=== PATIENT | male | born 1945 | race Caucasian/White ===

== ENCOUNTER 2020-09-19 17:35 | Inpatient (IN) | payer OTHER ==
[~2020-09-19 17:35] MED LIST: CLOPIDOGREL BISULFATE 75 MG TABLET (FP) PO SCH
[2020-09-19 18:00] VITALS: BMI 26.6
[2020-09-19 19:27] LABS: EOS % 2.1 % (0-4.5); HEMATOCRIT 36.4 % (35.4-49); HEMOGLOBIN 12.2 GM/dL (11.7-16.9); LYMPH % 24.8 % (8-40); MCH 25.3 pg (25.7-33.7); MCHC 33.6 g/dl (32.0-35.9); MEAN CELL VOLUME 75.5 fl (80-96); MEAN PLT VOLUME 9.9 fl (7.5-11.1); NEUT % 63.1 % (42.8-82.8); PLATELET COUNT 372 K/MM3 (134-434); RBC 4.83 M/mm3 (4.00-5.60); RDW 20.3 % (11.9-15.9)
[2020-09-19 19:42] LABS: INR 0.97 (0.83-1.09); PROTHROMBIN TIME (PATIENT) 11.9 SEC (9.7-13.0)
[2020-09-19 19:46] LABS: POTASSIUM 4.6 mmol/L (3.5-5.1)
[2020-09-19 19:51] LABS: ALBUMIN 3.1 g/dl (3.4-5.0); BLOOD UREA NITROGEN 14.6 mg/dL (7-18); CALCIUM 8.7 mg/dL (8.5-10.1)
[2020-09-19 19:53] LABS: CREATININE 0.6 mg/dL (0.55-1.3)
[2020-09-19 19:54] LABS: BILIRUBIN,TOTAL 0.4 mg/dL (0.2-1); TOT PROT 7.7 g/dl (6.4-8.2)
[2020-09-19] MEDS ORDERED: ATORVASTATIN CA 80 MG TABLET (FP) PO SCH (22:00)
[2020-09-19] MEDS ORDERED: CLOPIDOGREL BISULFATE 75 MG TABLET (FP) ONE ×2 (23:42→23:55)
[2020-09-19] MEDS ORDERED: ATORVASTATIN CA 80 MG TABLET (FP) ONE (23:42)
[2020-09-19] MEDS ORDERED: HEPARIN NA (PORCINE) 5,000 UNITS/ML 1ML VIAL ONE (23:43)
[2020-09-19] MEDS: HEPARIN NA (PORCINE) 5,000 UNITS/ML 1ML VIAL SQ SCH (23:57)
[2020-09-19] MEDS: ATORVASTATIN CA 80 MG TABLET (FP) PO SCH (23:58)
[2020-09-19] MEDS: CLOPIDOGREL BISULFATE 75 MG TABLET (FP) PO SCH (23:58)
[2020-09-20] MEDS ORDERED: HEPARIN NA (PORCINE) 5,000 UNITS/ML 1ML VIAL ONE ×2 (06:59→15:05)
[2020-09-20] MEDS: HEPARIN NA (PORCINE) 5,000 UNITS/ML 1ML VIAL SQ SCH ×3 (07:04→21:50)
[2020-09-20] MEDS ORDERED: CLOPIDOGREL BISULFATE 75 MG TABLET (FP) ONE (07:59)
[2020-09-20] MEDS: CLOPIDOGREL BISULFATE 75 MG TABLET (FP) PO SCH (09:13)
[2020-09-20] MEDS: metoPROLOL SUCCINATE 25 MG TAB.SR.24H (FP) PO SCH (10:09)
[2020-09-20] MEDS: INSULIN SLIDING SCALE (NOVOLOG) 1 VIAL SQ SCH ×3 (11:21→21:49)
[2020-09-20] MEDS ORDERED: FLU VACCINE (FLULAVAL) PF 60 MCG/0.5 ML SYRINGE 2020-2021 IM ONE (21:00)
[2020-09-20] MEDS: ATORVASTATIN CA 80 MG TABLET (FP) PO SCH (21:50)
[2020-09-21] MEDS: HEPARIN NA (PORCINE) 5,000 UNITS/ML 1ML VIAL SQ SCH ×3 (05:58→21:51)
[2020-09-21] MEDS: INSULIN SLIDING SCALE (NOVOLOG) 1 VIAL SQ SCH ×4 (06:16→21:52)
[2020-09-21 07:10] LABS: BASO % 0.8 % (0-2.0); EOS % 2.1 % (0-4.5); HEMATOCRIT 36.5 % (35.4-49); HEMOGLOBIN 11.9 GM/dL (11.7-16.9); LYMPH % 28.7 % (8-40); MCH 24.8 pg (25.7-33.7); MCHC 32.6 g/dl (32.0-35.9); MEAN CELL VOLUME 76.3 fl (80-96); MONO % 10.3 % (3.8-10.2); NEUT % 58.1 % (42.8-82.8); PLATELET COUNT 256 K/MM3 (134-434); RBC 4.79 M/mm3 (4.00-5.60); RDW 20.2 % (11.9-15.9); WHITE BLOOD COUNT 7.2 K/mm3 (4.0-10.0)
[2020-09-21 07:16] LABS: POTASSIUM 3.3 mmol/L (3.5-5.1)
[2020-09-21 07:28] LABS: CALCIUM 8.5 mg/dL (8.5-10.1)
[2020-09-21 07:29] LABS: ALBUMIN 2.8 g/dl (3.4-5.0); BLOOD UREA NITROGEN 14.2 mg/dL (7-18)
[2020-09-21 07:32] LABS: BILIRUBIN,TOTAL 0.6 mg/dL (0.2-1); CREATININE 0.5 mg/dL (0.55-1.3)
[2020-09-21 07:33] LABS: TOT PROT 6.9 g/dl (6.4-8.2)
[2020-09-21] MEDS ORDERED: REGADENOSON 0.4 MG/5 ML PRE-FILLED SYRINGE IVPUSH ONE ×2 (10:00→10:28)
[2020-09-21] MEDS: CLOPIDOGREL BISULFATE 75 MG TABLET (FP) PO SCH (13:57)
[2020-09-21] MEDS: metoPROLOL SUCCINATE 25 MG TAB.SR.24H (FP) PO SCH (13:57)
[2020-09-21] MEDS: ATORVASTATIN CA 80 MG TABLET (FP) PO SCH (21:52)
[2020-09-22] MEDS ORDERED: FAMOTIDINE 20 MG TABLET PO ONE
[2020-09-22] MEDS: HEPARIN NA (PORCINE) 5,000 UNITS/ML 1ML VIAL SQ SCH ×2 (06:01→15:15)
[2020-09-22] MEDS: INSULIN SLIDING SCALE (NOVOLOG) 1 VIAL SQ SCH ×3 (06:29→17:25)
[2020-09-22] MEDS ORDERED: SODIUM CHLORIDE 1,000 ML IV SCH ×2 (08:15→15:26)
[2020-09-22] MEDS: metoPROLOL SUCCINATE 25 MG TAB.SR.24H (FP) PO SCH (10:17)
[2020-09-22] MEDS: CLOPIDOGREL BISULFATE 75 MG TABLET (FP) PO SCH (10:28)
[2020-09-22] MEDS ORDERED: HEPARIN NA (PORCINE) 5,000 UNITS/ML 1ML VIAL ONE ×2 (11:12→13:11)
[2020-09-22] MEDS ORDERED: LIDOCAINE HCL 1%, 10 MG/ML (20ML VIAL) ONE (11:12)
[2020-09-22] MEDS ORDERED: PROPOFOL 20 ML ONE ×2 (13:22→14:15)
[2020-09-22] MEDS ORDERED: ONDANSETRON 4 MG/2 ML VIAL IVPUSH PRN ×2 (14:59→15:26)
[2020-09-22] MEDS ORDERED: LACTATED RINGERS SOLUTION 1,000 ML IV SCH ×2 (15:00→15:26)
[2020-09-22] MEDS ORDERED: ATORVASTATIN CA 80 MG TABLET (FP) PO SCH (22:00)
[2020-09-23] MEDS: HEPARIN NA (PORCINE) 5,000 UNITS/ML 1ML VIAL SQ SCH ×3 (00:03→15:00)
[2020-09-23] MEDS: INSULIN SLIDING SCALE (NOVOLOG) 1 VIAL SQ SCH ×3 (00:04→11:45)
[2020-09-23] MEDS ORDERED: ACETAMINOPHEN 1000 MG/100 ML VIAL (NON FORMULARY) IVPB ONE (00:34)
[2020-09-23] MEDS ORDERED: ACETAMINOPHEN 325 MG TABLET (FP) PO PRN (01:23)
[2020-09-23 09:51] LABS: POTASSIUM 3.4 mmol/L (3.5-5.1)
[2020-09-23 09:53] LABS: CALCIUM 8.4 mg/dL (8.5-10.1)
[2020-09-23 09:54] LABS: BLOOD UREA NITROGEN 12.8 mg/dL (7-18)
[2020-09-23 09:57] LABS: CREATININE 0.6 mg/dL (0.55-1.3)
[2020-09-23] MEDS ORDERED: metoPROLOL SUCCINATE 25 MG TAB.SR.24H (FP) PO SCH (10:00)
[2020-09-23] MEDS ORDERED: CLOPIDOGREL BISULFATE 75 MG TABLET (FP) PO SCH (10:00)
[2020-09-23] MEDS ORDERED: POTASSIUM CHLORIDE TABS 20 MEQ TABLET.ER (FP) PO ONE (11:00)
[2020-09-23 14:24] VITALS: BP 149/77; PULSE 73; TEMP 99.5
== END 2020-09-24 01:19 | DRG 272 ==
LOC: JER 17:35 → JERBED 20:06 → J4W 09-20 16:49
PROVIDERS: ATTEND Family Medicine
PROC: 047K3DZ Dilation of Right Femoral Artery with Intraluminal Device, Percutaneous Approach (ICD-10-PCS; 2020-09-22)
PROC: B40FYZZ Plain Radiography of Right Lower Extremity Arteries using Other Contrast (ICD-10-PCS; 2020-09-22)
PROC: 3E05317 Introduction of Other Thrombolytic into Peripheral Artery, Percutaneous Approach (ICD-10-PCS; 2020-09-22)
PROC: 04CK3ZZ Extirpation of Matter from Right Femoral Artery, Percutaneous Approach (ICD-10-PCS; principal; 2020-09-22 13:30)
DX: E11.51 Type 2 diabetes mellitus with diabetic peripheral angiopathy without gangrene (principal); I10 Essential (primary) hypertension; E78.5 Hyperlipidemia, unspecified; Z89.612 Acquired absence of left leg above knee; E66.3 Overweight; I74.3 Embolism and thrombosis of arteries of the lower extremities; Z68.26 Body mass index [BMI] 26.0-26.9, adult; Z79.4 Long term (current) use of insulin
CPT/HCPCS: 36415; 71045-TC-FY; 71275-TC; 75635-TC; 76000-TC-FY; 78452-TC; 80048; 80053; 80061; 82550; 82962; 83036; 83721; 83735; 84443; 84484; 85025; 85610; 85730; 86850; 86900; 86901; 93005; 93010; 93017; 93306-TC; 93926-TC; 94760; 97116-GP; 97162-GP; 99285-25; A9502; C9803; G0008; J0131; J1644; J2785; Q2036; Q9967; U0003

== ENCOUNTER 2022-03-14 17:38 | Observation (INO) | payer OTHER ==
[2022-03-14 18:42] VITALS: BMI 26.6
[2022-03-14 20:51] LABS: BASO % 0.6 % (0-2.0); EOS % 2.4 % (0-4.5); HEMATOCRIT 44.1 % (35.4-49); HEMOGLOBIN 14.7 GM/dL (11.7-16.9); LYMPH % 21.4 % (8-40); MCH 25.8 pg (25.7-33.7); MCHC 33.2 g/dl (32.0-35.9); MEAN CELL VOLUME 77.8 fl (80-96); MEAN PLT VOLUME 9.5 fl (7.5-11.1); MONO % 7.4 % (3.8-10.2); NEUT % 68.2 % (42.8-82.8); PLATELET COUNT 259 10^3/uL (134-434); RBC 5.68 M/mm3 (4.00-5.60); RDW 16.5 % (11.9-15.9); WHITE BLOOD COUNT 10.2 K/mm3 (4.0-10.0)
[2022-03-14 21:19] LABS: CALCIUM 9.2 mg/dL (8.5-10.1)
[2022-03-14 21:20] LABS: ALBUMIN 3.2 g/dl (3.4-5.0)
[2022-03-14 21:23] LABS: CREATININE 0.6 mg/dL (0.55-1.3)
[2022-03-14 21:25] LABS: BILIRUBIN,TOTAL 0.3 mg/dL (0.2-1); TOT PROT 7.3 g/dl (6.4-8.2)
[2022-03-14 21:28] LABS: N-TERMINAL BNP 241.4 pg/ml (5-450)
[2022-03-14] MEDS ORDERED: ASPIRIN 325 MG ENTERIC COATED TABLET (FP) PO ONE (21:36)
[2022-03-14] MEDS ORDERED: ACETAMINOPHEN 1000 MG/100 ML BAG IVPB ONE (21:37)
[2022-03-14] MEDS ORDERED: ASPIRIN 325 MG ENTERIC COATED TABLET (FP) ONE (22:05)
[2022-03-14] MEDS ORDERED: ACETAMINOPHEN INJECTION 100 ML IVPB ONE (22:05)
[2022-03-14] MEDS ORDERED: ASPIRIN COATED 81 MG TABLET.EC PO ONE (22:30)
[2022-03-14] MEDS ORDERED: ASPIRIN COATED 81 MG TABLET.EC ONE (22:32)
[2022-03-15] MEDS ORDERED: CEPHALEXIN MONOHYDRATE 500 MG CAPSULE (UD) ONE ×3 (00:42→09:48)
[2022-03-15] MEDS: CEPHALEXIN MONOHYDRATE 500 MG CAPSULE (UD) PO SCH ×3 (00:45→21:20)
[2022-03-15 07:50] LABS: BASO % 0.7 % (0-2.0); EOS % 3.6 % (0-4.5); LYMPH % 29.4 % (8-40); MCH 25.8 pg (25.7-33.7); MCHC 33.2 g/dl (32.0-35.9); MEAN CELL VOLUME 77.6 fl (80-96); MEAN PLT VOLUME 9.1 fl (7.5-11.1); NEUT % 58.3 % (42.8-82.8); PLATELET COUNT 224 10^3/uL (134-434); RBC 5.42 M/mm3 (4.00-5.60); RDW 16.4 % (11.9-15.9); WHITE BLOOD COUNT 7.7 K/mm3 (4.0-10.0)
[2022-03-15 08:23] LABS: BLOOD UREA NITROGEN 20.7 mg/dL (7-18)
[2022-03-15 08:24] LABS: ALBUMIN 2.8 g/dl (3.4-5.0); CALCIUM 8.7 mg/dL (8.5-10.1)
[2022-03-15 08:27] LABS: CREATININE 0.5 mg/dL (0.55-1.3)
[2022-03-15 08:28] LABS: BILIRUBIN,TOTAL 0.4 mg/dL (0.2-1); TOT PROT 6.5 g/dl (6.4-8.2)
[2022-03-15] MEDS ORDERED: ASPIRIN 81 MG CHEWABLE TABLETS ONE (09:48)
[2022-03-15] MEDS: ASPIRIN 81 MG CHEWABLE TABLETS PO SCH (09:55)
[2022-03-15] MEDS ORDERED: metoPROLOL SUCCINATE 25 MG TAB.SR.24H (FP) PO ONE (11:18)
[2022-03-15] MEDS: metoPROLOL SUCCINATE 25 MG TAB.SR.24H (FP) PO SCH (11:19)
[2022-03-15] MEDS ORDERED: POTASSIUM CHLORIDE 10 MEQ in SODIUM CHLORIDE 0.45% 1,000 ML IVPB SCH (13:30)
[2022-03-15] MEDS ORDERED: POTASSIUM CHLORIDE TABS 20 MEQ TABLET.ER (FP) PO ONE ×2 (14:00→14:43)
[2022-03-15] MEDS ORDERED: HEPARIN NA (PORCINE) 5,000 UNITS/ML 1ML VIAL ONE (14:43)
[2022-03-15] MEDS: HEPARIN NA (PORCINE) 5,000 UNITS/ML 1ML VIAL SQ SCH ×2 (14:56→21:19)
[2022-03-15] MEDS ORDERED: guaiFENesin 200 MG/10 ML 10 ML UNIT-DOSE CUPS PO PRN (18:01)
[2022-03-15] MEDS: ATORVASTATIN CA 80 MG TABLET (FP) PO SCH (21:20)
[2022-03-15] MEDS: INSULIN SLIDING SCALE (NOVOLOG) 1 VIAL SQ SCH (21:20)
[2022-03-16] MEDS: INSULIN SLIDING SCALE (NOVOLOG) 1 VIAL SQ SCH ×4 (06:40→21:34)
[2022-03-16] MEDS: HEPARIN NA (PORCINE) 5,000 UNITS/ML 1ML VIAL SQ SCH ×3 (06:40→21:29)
[2022-03-16 07:34] LABS: CALCIUM 8.7 mg/dL (8.5-10.1)
[2022-03-16 07:36] LABS: ALBUMIN 2.7 g/dl (3.4-5.0); BLOOD UREA NITROGEN 17.9 mg/dL (7-18); MAGNESIUM 1.9 mg/dL (1.8-2.4)
[2022-03-16 07:39] LABS: CREATININE 0.5 mg/dL (0.55-1.3)
[2022-03-16 07:40] LABS: BILIRUBIN,TOTAL 1.1 mg/dL (0.2-1); TOT PROT 6.3 g/dl (6.4-8.2)
[2022-03-16] MEDS: ASPIRIN 81 MG CHEWABLE TABLETS PO SCH (10:00)
[2022-03-16] MEDS: CLOPIDOGREL BISULFATE 75 MG TABLET (FP) PO SCH (10:00)
[2022-03-16] MEDS: metoPROLOL SUCCINATE 25 MG TAB.SR.24H (FP) PO SCH (10:01)
[2022-03-16] MEDS ORDERED: AZITHROMYCIN 250 MG TABLET PO ONE (12:30)
[2022-03-16] MEDS: ATORVASTATIN CA 80 MG TABLET (FP) PO SCH (21:29)
[2022-03-17] MEDS: HEPARIN NA (PORCINE) 5,000 UNITS/ML 1ML VIAL SQ SCH ×2 (06:42→13:57)
[2022-03-17] MEDS: INSULIN SLIDING SCALE (NOVOLOG) 1 VIAL SQ SCH ×2 (06:42→11:50)
[2022-03-17] MEDS: metoPROLOL SUCCINATE 25 MG TAB.SR.24H (FP) PO SCH (09:36)
[2022-03-17] MEDS: ASPIRIN 81 MG CHEWABLE TABLETS PO SCH (09:36)
[2022-03-17] MEDS: CLOPIDOGREL BISULFATE 75 MG TABLET (FP) PO SCH (09:36)
[2022-03-17] MEDS ORDERED: AZITHROMYCIN 250 MG TABLET PO SCH (10:00)
[2022-03-17 11:42] VITALS: BP 133/70; PULSE 65; TEMP 97.8
== END 2022-03-17 18:27 | disposition home or self-care (01) ==
LOC: JER 17:38 → JERBED 21:40 → J4W 03-15 15:24
PROVIDERS: ADMIT Internal Medicine; ATTEND Family Medicine
PROC: 3E033NZ Introduction of Analgesics, Hypnotics, Sedatives into Peripheral Vein, Percutaneous Approach (ICD-10-PCS; principal; 2022-03-14)
PROC: 3E013VG Introduction of Insulin into Subcutaneous Tissue, Percutaneous Approach (ICD-10-PCS; 2022-03-14)
PROC: 3E0337Z Introduction of Electrolytic and Water Balance Substance into Peripheral Vein, Percutaneous Approach (ICD-10-PCS; 2022-03-14)
DX: I25.10 Atherosclerotic heart disease of native coronary artery without angina pectoris (principal); I73.9 Peripheral vascular disease, unspecified; E11.9 Type 2 diabetes mellitus without complications; I25.2 Old myocardial infarction; I11.9 Hypertensive heart disease without heart failure; Z89.612 Acquired absence of left leg above knee; E78.5 Hyperlipidemia, unspecified; R07.89 Other chest pain; I70.90 Unspecified atherosclerosis; L03.115 Cellulitis of right lower limb; Z79.4 Long term (current) use of insulin; F17.210 Nicotine dependence, cigarettes, uncomplicated; R07.9 Chest pain, unspecified
CPT/HCPCS: 36415; 71045-TC-FY; 80053; 80061; 82962; 83036; 83735; 83880; 84443; 84484; 85025; 93005; 93010; 96361; 96372; 96374; 99285-25; C9803-CS; G0378; J1644; U0003; U0005

== ENCOUNTER 2022-04-06 04:10 | Day surgery (SDC) | payer OTHER ==
[2022-04-05 12:11] VITALS: BMI 26.6
[2022-04-06] MEDS ORDERED: LIDOCAINE HCL 1%, 10 MG/ML (20ML VIAL) ONE (14:19)
[2022-04-06] MEDS ORDERED: HEPARIN NA (PORCINE) 5,000 UNITS/ML 1ML VIAL ONE (14:19)
[2022-04-06] MEDS ORDERED: SUCCINYLCHOLINE CHLORIDE 200 MG/10 ML SYRINGE ONE (16:53)
[2022-04-06] MEDS ORDERED: MIDAZOLAM HCL 2 MG/2 ML SINGLE DOSE VIAL ONE (16:53)
[2022-04-06] MEDS ORDERED: PROPOFOL 20 ML ONE (16:53)
[2022-04-06] MEDS ORDERED: ceFAZolin SODIUM 1 GM VIAL IVPB ONE (16:57)
[2022-04-06] MEDS ORDERED: LIDOCAINE HCL 1%, 10 MG/ML (20ML VIAL) INF ONE (17:52)
[2022-04-06] MEDS ORDERED: CLOPIDOGREL BISULFATE 75 MG TABLET (FP) PO ONE (18:02)
[2022-04-06] MEDS ORDERED: CLOPIDOGREL BISULFATE 75 MG TABLET (FP) ONE (18:58)
[2022-04-06] MEDS ORDERED: ATORVASTATIN CA 80 MG TABLET (FP) PO SCH (22:00)
[2022-04-07] MEDS: GABAPENTIN 100 MG CAPSULE PO SCH ×3 (00:11→15:30)
[2022-04-07] MEDS ORDERED: metoPROLOL SUCCINATE 25 MG TAB.SR.24H (FP) PO SCH (10:00)
[2022-04-07] MEDS ORDERED: CLOPIDOGREL BISULFATE 75 MG TABLET (FP) PO SCH (10:00)
[2022-04-07] MEDS ORDERED: ASPIRIN COATED 81 MG TABLET.EC PO SCH (10:00)
[2022-04-07 10:49] VITALS: BP 119/52; PULSE 66; TEMP 98.5
== END 2022-04-07 14:39 | disposition home or self-care (01) ==
LOC: JASU-SURG 04:10 → J5S 04-07 00:03 → JASUSAT 04-07 14:39
PROVIDERS: ATTEND Surgery Vascular Surgery
PROC: 047M3Z1 Dilation of Right Popliteal Artery using Drug-Coated Balloon, Percutaneous Approach (ICD-10-PCS; 2022-04-06)
PROC: 047K3Z1 Dilation of Right Femoral Artery using Drug-Coated Balloon, Percutaneous Approach (ICD-10-PCS; principal; 2022-04-06 16:30)
DX: E11.51 Type 2 diabetes mellitus with diabetic peripheral angiopathy without gangrene (principal); I70.211 Atherosclerosis of native arteries of extremities with intermittent claudication, right leg
CPT/HCPCS: 37186; 37225; 37228; 37232; 75898; C1885; 76000-TC-FY; 94760; J1644

== ENCOUNTER 2024-01-12 17:32 | Inpatient (IN) | payer OTHER ==
[2024-01-12 18:49] LABS: BASO % 0.7 % (0-2.0); EOS % 0.9 % (0-4.5); HEMATOCRIT 42.2 % (35.4-49); LYMPH % 15.2 % (8-40); MCH 25.7 pg (25.7-33.7); MCHC 33.1 g/dl (32.0-35.9); MEAN CELL VOLUME 77.7 fl (80-96); MEAN PLT VOLUME 9.2 fl (7.5-11.1); MONO % 8.6 % (3.8-10.2); NEUT % 74.6 % (42.8-82.8); PLATELET COUNT 310 10^3/uL (134-434); RBC 5.43 M/mm3 (4.00-5.60); RDW 16.8 % (11.9-15.9); WHITE BLOOD COUNT 10.6 K/mm3 (4.0-10.0)
[2024-01-12] MEDS ORDERED: FAMOTIDINE 20 MG/50 ML IVPB 20 MG/50 ML MG IVPB ONE (19:26)
[2024-01-12] MEDS: FAMOTIDINE 20 MG/50 ML IVPB 20 MG/50 ML MG IVPB ONE (19:31)
[2024-01-12 20:04] LABS: CHLORIDE 106 mmol/L (98-107); SODIUM 143 mmol/L (136-145)
[2024-01-12 20:05] LABS: CALCIUM 8.6 mg/dL (8.5-10.1)
[2024-01-12 20:07] LABS: ALBUMIN 2.9 g/dl (3.4-5.0); BLOOD UREA NITROGEN 25.7 mg/dL (7-18); CO2 31 mmol/L (21-32); GLUCOSE,RANDOM 181 mg/dL (74-106); MAGNESIUM 1.7 mg/dL (1.8-2.4)
[2024-01-12 20:10] LABS: CREATININE 0.7 mg/dL (0.55-1.3); SGOT/AST 13 U/L (15-37); SGPT/ALT 12 U/L (13-61)
[2024-01-12 20:11] LABS: BILIRUBIN,TOTAL 0.4 mg/dL (0.2-1); TOT PROT 6.7 g/dl (6.4-8.2)
[2024-01-12 20:12] LABS: ALK PHOS 268 U/L (45-117)
[2024-01-12 20:14] LABS: N-TERMINAL BNP 319.1 pg/ml (5-450)
[2024-01-12] MEDS ORDERED: MAGNESIUM 1GM/D5W - 1 GM/100 ML IVPB IVPB ONE (20:26)
[2024-01-12 20:28] LABS: ANION GAP 6 mmol/L (4-13); POTASSIUM 2.8 mmol/L (3.5-5.1)
[2024-01-12] MEDS ORDERED: KCL 10 MEQ IVPB 10 MEQ/100 ML INFUS.BAG IVPB ONE ×2 (20:35→22:31)
[2024-01-12] MEDS: SODIUM CHLORIDE 0.9% 500 ML INFUS.BAG IV ONE (20:42)
[2024-01-12] MEDS: KCL 10 MEQ IVPB 10 MEQ/100 ML INFUS.BAG IVPB SCH (20:43)
[2024-01-12] MEDS ORDERED: ATORVASTATIN CA 80 MG TABLET (FP) ONE (21:12)
[2024-01-12] MEDS ORDERED: GABAPENTIN 100 MG CAPSULE ONE (21:12)
[2024-01-12] MEDS: ATORVASTATIN CA 80 MG TABLET (FP) PO SCH (21:16)
[2024-01-12] MEDS: GABAPENTIN 100 MG CAPSULE PO SCH (21:17)
[2024-01-12] MEDS: MAGNESIUM 1GM/D5W - 1 GM/100 ML IVPB IVPB ONE (21:47)
[2024-01-13 00:40] LABS: URINE APPEARANCE CLEAR; URINE BILIRUBIN NEGATIVE (NEGATIVE); URINE COLOR YELLOW; URINE GLUCOSE (UA) 3+ (NEGATIVE); URINE KETONE NEGATIVE (NEGATIVE); URINE LEUK ESTERASE NEGATIVE (NEGATIVE); URINE NITRITE NEGATIVE (NEGATIVE); URINE PROTEIN NEGATIVE (NEGATIVE); URINE UROBILINOGEN 0.2 mg/dL (0.2-1.0)
[2024-01-13 08:32] LABS: POTASSIUM 3.2 mmol/L (3.5-5.1)
[2024-01-13 08:41] LABS: BASO % 0.6 % (0-2.0); EOS % 1.4 % (0-4.5); HEMATOCRIT 37.3 % (35.4-49); HEMOGLOBIN 12.6 GM/dL (11.7-16.9); LYMPH % 20.7 % (8-40); MCH 26.2 pg (25.7-33.7); MCHC 33.8 g/dl (32.0-35.9); MEAN CELL VOLUME 77.5 fl (80-96); MEAN PLT VOLUME 9.5 fl (7.5-11.1); MONO % 8.7 % (3.8-10.2); NEUT % 68.6 % (42.8-82.8); PLATELET COUNT 272 10^3/uL (134-434); RBC 4.82 M/mm3 (4.00-5.60); RDW 16.9 % (11.9-15.9)
[2024-01-13 08:51] LABS: CALCIUM 8.6 mg/dL (8.5-10.1)
[2024-01-13 08:57] LABS: CREATININE 0.5 mg/dL (0.55-1.3)
[2024-01-13] MEDS: metoPROLOL SUCCINATE 25 MG TAB.SR.24H (FP) PO SCH (09:30)
[2024-01-13] MEDS: CLOPIDOGREL BISULFATE 75 MG TABLET (FP) PO SCH (09:30)
[2024-01-13] MEDS: ASPIRIN COATED 81 MG TABLET.EC PO SCH (09:30)
[2024-01-13] MEDS ORDERED: PATIENT'S OWN MEDICATION (NON-FORMULARY) (Dapagliflozin Propanediol 10 MG Tablet) PO SCH (10:00)
[2024-01-13] MEDS: POTASSIUM CHLORIDE ORAL LIQUID 20 MEQ/15 ML PO ONE (10:19)
[2024-01-13] MEDS: INSULIN ASPART SLIDING SCALE (NOVOLOG) 1 VIAL SQ SCH (21:56)
[2024-01-14 09:58] LABS: BLOOD UREA NITROGEN 15.8 mg/dL (7-18); CALCIUM 8.6 mg/dL (8.5-10.1); POTASSIUM 3.6 mmol/L (3.5-5.1)
[2024-01-14 10:01] LABS: CREATININE 0.5 mg/dL (0.55-1.3)
[2024-01-14 15:09] VITALS: BMI 19.5
[2024-01-14] MEDS ORDERED: INSULIN (NOVOLOG) ASPART 100 UNITS/ML 10ML VIAL ONE (16:44)
[2024-01-15] MEDS ORDERED: CEFTRIAXONE 1,000 GM in DEXTROSE 5%-WATER - 50 ML IVPB SCH (10:00)
[2024-01-15] MEDS: CEFTRIAXONE 1 GM in DEXTROSE 5%-WATER - 50 ML IVPB SCH (10:40)
[2024-01-15] MEDS: ARTIFICIAL TEARS OPHTHALMIC DROPS OU PRN (12:01)
[2024-01-18 06:46] VITALS: RESP 18
[2024-01-18 08:31] VITALS: BP 139/60; PULSE 61; TEMP 98.1
== END 2024-01-18 11:16 | disposition home or self-care (01) | DRG 313 ==
LOC: JER 17:32 → JERBED 20:18 → INTOOBSV 20:18 → J4W 23:14 → OBSVTOIN 01-14 15:57
PROVIDERS: ADMIT Internal Medicine; ATTEND Family Medicine
DX: R07.89 Other chest pain (principal); E11.51 Type 2 diabetes mellitus with diabetic peripheral angiopathy without gangrene; E78.00 Pure hypercholesterolemia, unspecified; I10 Essential (primary) hypertension; Z89.612 Acquired absence of left leg above knee; H02.822 Cysts of right lower eyelid; I25.10 Atherosclerotic heart disease of native coronary artery without angina pectoris
CPT/HCPCS: 36415; 71045-TC-FY; 80048; 80053; 80061; 81003; 82962; 83735; 83880; 84484; 85025; 86850; 86900; 86901; 87040; 87086; 87186; 93005; 93010; 99285-25; G0378

== ENCOUNTER 2024-08-07 14:48 | Inpatient (IN) | payer OTHER ==
[2024-08-07 15:18] VITALS: BMI 24.3
[2024-08-07 15:59] LABS: BASO % 0.7 % (0-2.0); EOS % 0.7 % (0-4.5); HEMATOCRIT 41.8 % (35.4-49); HEMOGLOBIN 13.8 GM/dL (11.7-16.9); MCH 25.6 pg (25.7-33.7); MCHC 32.9 g/dl (32.0-35.9); MEAN CELL VOLUME 77.8 fl (80-96); MEAN PLT VOLUME 8.4 fl (7.5-11.1); MONO % 10.5 % (3.8-10.2); NEUT % 76.1 % (42.8-82.8); PLATELET COUNT 340 10^3/uL (134-434); RBC 5.37 M/mm3 (4.00-5.60); RDW 18.7 % (11.9-15.9); WHITE BLOOD COUNT 8.4 K/mm3 (4.0-10.0)
[2024-08-07 16:01] LABS: EPI CELLS 4 /uL (0-25.1); HYALINE CASTS 3 /uL (0-3.1); PH,URINE 5.5 (5.0-8.0); URINE APPEARANCE CLEAR; URINE BACTERIA >9,000 /uL (0-1359); URINE BILIRUBIN NEGATIVE (NEGATIVE); URINE COLOR YELLOW; URINE GLUCOSE (UA) 2+ (NEGATIVE); URINE KETONE NEGATIVE (NEGATIVE); URINE LEUK ESTERASE 1+ (NEGATIVE); URINE NITRITE NEGATIVE (NEGATIVE); URINE PROTEIN 1+ (NEGATIVE); URINE RBC 32 /uL (0-23.9); URINE WBC 638 /uL (0-25.8)
[2024-08-07 16:07] LABS: INR 0.98 (0.83-1.09); PROTHROMBIN TIME (PATIENT) 11.3 SEC (9.7-13.0)
[2024-08-07 16:10] LABS: ACTIVATED PTT 30.6 SECONDS (25.2-36.5)
[2024-08-07] MEDS ORDERED: CEFTRIAXONE 1 GM/50 ML BAG ONE (16:16)
[2024-08-07 16:24] LABS: CHLORIDE 103 mmol/L (98-107); SODIUM 137 mmol/L (136-145)
[2024-08-07 16:26] LABS: ALBUMIN 2.2 g/dl (3.4-5.0); ANION GAP 6 mmol/L (4-13); CO2 28 mmol/L (21-32); POTASSIUM 6.3 mmol/L (3.5-5.1)
[2024-08-07 16:27] LABS: BLOOD UREA NITROGEN 17.7 mg/dL (7-18); GLUCOSE,RANDOM 242 mg/dL (74-106); MAGNESIUM 2.1 mg/dL (1.8-2.4)
[2024-08-07] MEDS: CEFTRIAXONE 1,000 MG in DEXTROSE 5%-WATER - 50 ML IVPB ONE (16:28)
[2024-08-07 16:30] LABS: CREATININE 0.9 mg/dL (0.55-1.3); PHOSPHOROUS 2.5 mg/dL (2.5-4.9); SGOT/AST 66 U/L (15-37)
[2024-08-07 16:31] LABS: BILIRUBIN,TOTAL 0.7 mg/dL (0.2-1); SGPT/ALT 21 U/L (13-61); TOT PROT 7.4 g/dl (6.4-8.2)
[2024-08-07 16:32] LABS: ALK PHOS 230 U/L (45-117)
[2024-08-07] MEDS: SODIUM CHLORIDE 0.9% 500 ML INFUS.BAG IV ONE (17:28)
[2024-08-07 18:03] LABS: POTASSIUM 3.4 mmol/L (3.5-5.1)
[2024-08-07 18:04] LABS: BLOOD UREA NITROGEN 16.8 mg/dL (7-18); CALCIUM 8.9 mg/dL (8.5-10.1)
[2024-08-07 18:08] LABS: CREATININE 0.8 mg/dL (0.55-1.3)
[2024-08-07] MEDS ORDERED: POTASSIUM CHLORIDE TABS 20 MEQ TABLET.ER (FP) PO ONE (18:29)
[2024-08-07] MEDS: POTASSIUM CHLORIDE TABS 20 MEQ TABLET.ER (FP) PO ONE (18:34)
[2024-08-07] MEDS ORDERED: DOCUSATE SODIUM 100 MG CAPSULE (FP) PO PRN (19:42)
[2024-08-07] MEDS: INSULIN ASPART SLIDING SCALE (NOVOLOG) 1 VIAL SQ SCH (21:18)
[2024-08-07 22:21] LABS: PHOSPHOROUS 2.4 mg/dL (2.5-4.9)
[2024-08-08] MEDS: ASPIRIN COATED 81 MG TABLET.EC PO SCH (09:14)
[2024-08-08] MEDS: metoPROLOL SUCCINATE 25 MG TAB.SR.24H (FP) PO SCH (09:14)
[2024-08-08] MEDS: amLODIPine BESYLATE 10 MG TABLET (FP) PO SCH (09:14)
[2024-08-08] MEDS: CLOPIDOGREL BISULFATE 75 MG TABLET (FP) PO SCH (09:14)
[2024-08-08] MEDS: LOSARTAN 50MG/HCTZ 12.5MG 1 TAB PO SCH (09:14)
[2024-08-08 10:14] LABS: BASO % 0.5 % (0-2.0); EOS % 1.3 % (0-4.5); HEMATOCRIT 41.2 % (35.4-49); HEMOGLOBIN 13.2 GM/dL (11.7-16.9); LYMPH % 15.7 % (8-40); MCH 25.5 pg (25.7-33.7); MCHC 31.9 g/dl (32.0-35.9); MEAN CELL VOLUME 79.9 fl (80-96); MEAN PLT VOLUME 8.5 fl (7.5-11.1); MONO % 13.2 % (3.8-10.2); NEUT % 69.3 % (42.8-82.8); PLATELET COUNT 315 10^3/uL (134-434); RBC 5.15 M/mm3 (4.00-5.60); RDW 18.8 % (11.9-15.9); WHITE BLOOD COUNT 7.4 K/mm3 (4.0-10.0)
[2024-08-08 10:29] LABS: POTASSIUM 3.6 mmol/L (3.5-5.1)
[2024-08-08 10:33] LABS: CALCIUM 8.6 mg/dL (8.5-10.1)
[2024-08-08 10:34] LABS: BLOOD UREA NITROGEN 12.1 mg/dL (7-18)
[2024-08-08 10:37] LABS: CREATININE 0.6 mg/dL (0.55-1.3)
[2024-08-08] MEDS: EMPAGLIFLOZIN (JARDIANCE) 10 MG TABLET PO SCH (11:19)
[2024-08-08] MEDS: GABAPENTIN 100 MG CAPSULE PO SCH (13:33)
[2024-08-08] MEDS: ATORVASTATIN CA 80 MG TABLET (FP) PO SCH (21:23)
[2024-08-08] MEDS: CEFTRIAXONE 2 GM-D5W BAG 2 GM/50 ML BAG IVPB SCH (21:51)
[2024-08-09] MEDS: ACETAMINOPHEN 325 MG TABLET (FP) PO PRN (10:14)
[2024-08-09] MEDS: LIDOCAINE 5% TOPICAL PATCH TP SCH (11:57)
[2024-08-09] MEDS: PANTOPRAZOLE 40 MG TABLET PO SCH (12:04)
[2024-08-09] MEDS: LIDOCAINE PATCH REMOVAL MC SCH (21:56)
[2024-08-10 05:36] VITALS: RESP 18
[2024-08-10] MEDS: HEPARIN NA (PORCINE) 5,000 UNITS/ML 1ML VIAL SQ SCH (21:47)
[2024-08-11] MEDS: TAMSULOSIN HCL 0.4 MG CAP PO ONE (11:10)
[2024-08-11 11:59] LABS: HEMATOCRIT 40.5 % (35.4-49); HEMOGLOBIN 13.4 GM/dL (11.7-16.9); MCH 25.8 pg (25.7-33.7); MEAN CELL VOLUME 78.3 fl (80-96); MEAN PLT VOLUME 7.6 fl (7.5-11.1); PLATELET COUNT 389 10^3/uL (134-434); RBC 5.18 M/mm3 (4.00-5.60); RDW 18.8 % (11.9-15.9); WHITE BLOOD COUNT 8.1 K/mm3 (4.0-10.0)
[2024-08-11 12:19] LABS: POTASSIUM 4.2 mmol/L (3.5-5.1)
[2024-08-11 12:27] LABS: ALBUMIN 2.4 g/dl (3.4-5.0); CALCIUM 8.7 mg/dL (8.5-10.1)
[2024-08-11 12:28] LABS: BLOOD UREA NITROGEN 21.7 mg/dL (7-18)
[2024-08-11 12:31] LABS: CREATININE 0.8 mg/dL (0.55-1.3)
[2024-08-11 12:32] LABS: BILIRUBIN,TOTAL 0.3 mg/dL (0.2-1); TOT PROT 6.7 g/dl (6.4-8.2)
[2024-08-11] MEDS: metFORMIN HCL 500 MG TABLET (FP) PO SCH (17:10)
[2024-08-11] MEDS: INSULIN (LEVEMIR) 100 UNITS/ML UNITS SQ SCH (22:44)
[2024-08-12 08:34] VITALS: BP 121/62; PULSE 85; TEMP 97.9
[2024-08-12] MEDS: TAMSULOSIN HCL 0.4 MG CAP PO SCH (08:34)
[2024-08-12] MEDS: INSULIN (LEVEMIR) 100 UNITS/ML UNITS SQ SCH (08:34)
== END 2024-08-12 11:53 | DRG 690 ==
LOC: JER 14:48 → JERBED 17:08 → J6S 20:09 → OBSVTOIN 08-08 10:13
PROVIDERS: ADMIT Internal Medicine; ATTEND Family Medicine
DX: N39.0 Urinary tract infection, site not specified (principal); I10 Essential (primary) hypertension; E11.51 Type 2 diabetes mellitus with diabetic peripheral angiopathy without gangrene; E78.5 Hyperlipidemia, unspecified; N40.0 Benign prostatic hyperplasia without lower urinary tract symptoms; F17.210 Nicotine dependence, cigarettes, uncomplicated
CPT/HCPCS: 0241U-QW; 36415; 71045-TC-FY; 71101-TC-LT-FY; 76700-TC; 80048; 80053; 81003; 82550; 82553; 82962; 83735; 84100; 84443; 84484; 85025; 85027; 85610; 85730; 86850; 86900; 86901; 87086; 87186; 93005; 93010; 97162-GP; 99285-25; G0378; J1644